=== PATIENT | female | born 1985 | race American Indian/Alaskan Native ===

== ENCOUNTER 2022-05-30 20:39 | Emergency (ER) | payer OTHER ==
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
[2022-05-30 23:55] VITALS: BP 129/86
== END 2022-05-30 23:56 | disposition home or self-care (01) ==
LOC: ED 20:39
DX: S46.912A Strain of unspecified muscle, fascia and tendon at shoulder and upper arm level, left arm, initial encounter (principal); V89.2XXA Person injured in unspecified motor-vehicle accident, traffic, initial encounter; Y93.89 Activity, other specified; Y92.89 Other specified places as the place of occurrence of the external cause; Y99.8 Other external cause status
CPT/HCPCS: 99282